=== PATIENT | male | born 1995 | race Caucasian/White ===

== ENCOUNTER 2021-02-09 22:54 | Emergency (ER) | payer BC, OTHER ==
[~2021-02-09] VITALS: Ht 182.9 cm; Wt 90.0 kg
[2021-02-09] MEDS ORDERED: DIPH,PERTUSS(ACELL),TET VAC/PF 0.5 ML IM-VACC ONE (23:30)
[2021-02-10 00:59] LABS: BASOPHILS % (AUTO) 1 % (0-1); EOSINOPHILS % (AUTO) 13 % (1-7); LYMPHOCYTES % (AUTO) 23 % (22-44); MEAN CORPUSCULAR HEMOGLOBIN 28.6 pg (27.5-34.5); MEAN CORPUSCULAR HGB CONC 33.4 g/dL (33.2-36.2); MEAN PLATELET VOLUME 7.8 fL (7.4-10.4); MONOCYTES % (AUTO) 7 % (2-9); NEUTROPHILS % (AUTO) 56 % (42-75); PLATELET COUNT 401 x10^3/uL (130-400); RED BLOOD COUNT 4.87 x10^6/uL (4.38-5.82); RED CELL DISTRIBUTION WIDTH 14.4 % (9.4-14.8)
[2021-02-10 01:03] LABS: ALANINE AMINOTRANSFERASE 31 U/L (12-78); ALBUMIN 3.8 g/dL (3.4-5.0); ANION GAP 4 mmol/L (5-15); CALCIUM 8.9 mg/dL (8.5-10.1); CHLORIDE 104 mmol/L (98-107)
[2021-02-10 01:07] LABS: MD NO
[2021-02-10 01:08] LABS: ALKALINE PHOSPHATASE 115 U/L (45-117); BILIRUBIN,TOTAL 0.6 mg/dL (0.2-1.0); CREATININE 0.89 mg/dL (0.7-1.3); TOTAL PROTEIN 8.9 g/dL (6.4-8.2)
[2021-02-10] MEDS ORDERED: SODIUM CHLORIDE 0.9% 1,000ML IVBOLUS ONE (01:30)
[2021-02-10 01:45] VITALS: BP 119/69
[2021-02-10] MEDS ORDERED: CEPHALEXIN 500 MG CAPSULE ONE (01:47)
[2021-02-10] MEDS ORDERED: SULFAMETH./TRIMETHOPRIM DS 800MG/160MG TABLET ONE (01:48)
[2021-02-10] MEDS ORDERED: DIPH,PERTUSS(ACELL),TET VAC/PF 0.5 ML IM-VACC ONE (01:48)
[2021-02-10] MEDS ORDERED: SULFAMETH./TRIMETHOPRIM DS 800MG/160MG TABLET PO ONE (02:00)
[2021-02-10] MEDS ORDERED: CEPHALEXIN 500 MG CAPSULE PO ONE (02:00)
== END 2021-02-10 02:26 | disposition home or self-care (01) ==
LOC: ED 02-10 02:00
DX: M79.661 Pain in right lower leg (principal); M79.662 Pain in left lower leg; L03.116 Cellulitis of left lower limb; L03.115 Cellulitis of right lower limb; F17.210 Nicotine dependence, cigarettes, uncomplicated
CPT/HCPCS: 36415; 80053; 83605; 83880; 84145; 85025; 87040; 90471; 90715; 93970; 99284; 99406

== ENCOUNTER 2021-02-26 22:38 | Emergency (ER) | payer BC ==
[~2021-02-26] VITALS: Ht 185.4 cm; Wt 88.0 kg
[2021-02-26] MEDS ORDERED: CEPHALEXIN 500 MG CAPSULE PO ONE (23:30)
--- NOTE | 2021-02-26 23:35 | NUR ---
RECIEVED REPORT FROM ALEXIA.
[2021-02-26] MEDS ORDERED: CEPHALEXIN 500 MG CAPSULE ONE (23:46)
--- NOTE | 2021-02-26 23:55 | NUR ---
BILATERAL LEG OZZING AND BURING PAIN 03/18. PT STATES "HAD INFECTION ABOUT 2 WEEKS AGO WITH ALMOST SOME INFECTION ISSUES. CELULLITIS WITH 7 DAYS ANTIBIOTICS."
[2021-02-27 00:24] VITALS: BP 120/71
--- NOTE | 2021-02-27 00:38 | NUR ---
Patient given discharge instructions and they have confirmed that they understand the instructions. Patient ambulatory with steady gait. No questions at discharge.
== END 2021-02-27 00:39 | disposition home or self-care (01) ==
LOC: ED 02-27 00:11
DX: L03.116 Cellulitis of left lower limb (principal); L03.115 Cellulitis of right lower limb; F11.10 Opioid abuse, uncomplicated; R60.0 Localized edema
CPT/HCPCS: 99283